=== PATIENT | female | born 1950 | race Caucasian/White ===

== ENCOUNTER 2018-09-03 08:05 | Outpatient (CLI) | payer MEDICARE | END 2018-09-03 23:59 | disposition home or self-care (01) | LOC: STAR 08:05 | PROVIDERS: ATTEND Specialist | DX: Z01.818 Encounter for other preprocedural examination (principal); D07.1 Carcinoma in situ of vulva | CPT/HCPCS: 36415; 80053; 85025; 85610; 85730; 93005 ==

== ENCOUNTER 2018-09-08 08:53 | Day surgery (SDC) | payer MEDICARE ==
[~2018-09-08] VITALS: Ht 158.8 cm; Wt 62.0 kg
[~2018-09-08 08:53] MED LIST: ASPI81TA45 PO; ATOR40TA78 PO; ESTR0.9T PO; FLUO20CA19 PO; IBUP200C8 PO; LEVO112T2 PO; LOSA1TAB25 PO; OMEG1CAP39 PO
[2018-09-08] MEDS ORDERED: LACTATED RINGERS 1,000 ML IV SCH (09:56)
[2018-09-08] MEDS ORDERED: LIDOCAINE-MPF 1%, 2ML INFIL ONE (10:00)
[2018-09-08] MEDS ORDERED: FENTANYL PF 100 MCG/2ML ONE (12:56)
[2018-09-08] MEDS ORDERED: MIDAZOLAM 1 MG/ML, 2ML ONE (12:56)
[2018-09-08] MEDS ORDERED: DEXAMETHASONE 4 MG/ML, 1ML ONE (12:57)
[2018-09-08] MEDS ORDERED: ONDANSETRON 2MG/ML, 2ML ONE ×2 (12:57→15:16)
[2018-09-08] MEDS ORDERED: PROPOFOL 10 MG/ML, 20ML ONE (12:57)
[2018-09-08] MEDS ORDERED: CEFAZOLIN 1,000 MG ONE (12:57)
[2018-09-08] MEDS ORDERED: BUPIVACAINE/PF 0.25% ONE (13:58)
[2018-09-08] MEDS ORDERED: ESTROGENS CONJUGATED VAG CRM 0.625MG/1G, 30GM ONE (13:58)
[2018-09-08] MEDS ORDERED: ONDANSETRON 2MG/ML, 2ML IV PRN (14:30)
[2018-09-08] MEDS ORDERED: PROMETHAZINE 25 MG SUPP PR PRN (14:30)
[2018-09-08] MEDS ORDERED: LABETALOL 5MG/ML, 20ML IV PRN (14:30)
[2018-09-08] MEDS ORDERED: ACETAMINOPHEN 325 MG TABLET PO PRN (14:30)
[2018-09-08] MEDS ORDERED: PROMETHAZINE 25 MG/ML, 1ML IM PRN (14:30)
[2018-09-08] MEDS ORDERED: hydrALAzine 20 MG/ML, 1ML IV PRN (14:30)
[2018-09-08] MEDS ORDERED: ONDANSETRON ODT 8 MG PO PRN (14:30)
[2018-09-08] MEDS ORDERED: HYDROmorphone 2 MG/ML, 1ML IVPush PRN (14:30)
[2018-09-08] MEDS ORDERED: OXYcodone 5 MG/5 ML ORAL.SOL UDC PO PRN (14:30)
[2018-09-08] MEDS ORDERED: FENTANYL PF 100 MCG/2ML IV PRN (14:30)
[2018-09-08] MEDS ORDERED: PROMETHAZINE 25 MG/ML, 1ML ONE (15:27)
[2018-09-08] MEDS ORDERED: PROMETHAZINE 25 MG/ML, 1ML IV PRN (16:00)
== END 2018-09-08 17:30 | disposition home or self-care (01) ==
LOC: OR 08:53
PROVIDERS: ATTEND Specialist
DX: D07.1 Carcinoma in situ of vulva (principal); F41.9 Anxiety disorder, unspecified; E03.9 Hypothyroidism, unspecified; I10 Essential (primary) hypertension; E78.2 Mixed hyperlipidemia; N39.3 Stress incontinence (female) (male); N32.81 Overactive bladder; Z98.890 Other specified postprocedural states; Z90.710 Acquired absence of both cervix and uterus; Z72.89 Other problems related to lifestyle; Z87.891 Personal history of nicotine dependence
CPT/HCPCS: 36415; 57106; 86850; 86900; 88305; 88341; 88342; J0690; J1100; J2250; J2405; J2550; J2704; J3010; J3490; J7120